=== PATIENT | female | born 1990 | race Caucasian/White ===

== ENCOUNTER 2019-01-21 11:54 | Emergency (ER) | payer OTHER ==
[2019-01-21 12:03] VITALS: BP 111/63; PULSE 82; TEMP 98.1; BMI 38.7
--- NOTE | 2019-01-21 14:09 | PDOC ---
History of Present Illness - General Chief Complaint: Pain, Acute Stated Complaint: RT LEG EDEMA ( CLEAR BY L& D) Time Seen by Provider: 01/21/19 12:06 History Source: Patient Exam Limitations: No Limitations Past History - Past Medical History Allergies/Adverse Reactions: Allergies Allergy/AdvReac Type Severity Reaction Status Date / Time dog dander Allergy Intermediate Difficulty Verified 01/21/19 12:06 Breathing pollen extracts Allergy Intermediate Difficulty Verified 01/21/19 12:06 Breathing No Known Drug Allergies Allergy Verified 01/21/19 12:06 cat Allergy Intermediate Cough Uncoded 01/21/19 12:06 Home Medications: Ambulatory Orders Amoxicillin/Potassium Clav [Augmentin 500-125 Tablet] 1 tab PO BID 01/21/19 Vits96/Iron Fum/Folic [ Tablet] 1 tab PO DAILY 01/21/19 Asthma: Yes Cancer: No Cardiac Disorders: No COPD: No Diabetes: No HTN: No Seizures: No Thyroid Disease: No - Surgical History Abdominal Surgery: Yes - Suicide/Smoking/Psychosocial Hx Smoking History: Never smoked Hx Alcohol Use: No Drug/Substance Use Hx: No Substance Use Type: None Hx Substance Use Treatment: No *Physical Exam - Vital Signs Last Vital Signs Temp Pulse Resp BP Pulse Ox 98.1 F 82 16 111/63 98 01/21/19 11:58 01/21/19 11:58 01/21/19 11:58 01/21/19 11:58 01/21/19 11:58 - Physical Exam General Appearance: No: Apparent Distress Respiratory/Chest: positive: Lungs Clear, Normal Breath Sounds. negative: Respiratory Distress Cardiovascular: positive: Regular Rhythm, Regular Rate, S1, S2. negative: Murmur Gastrointestinal/Abdominal: positive: Other (gravid uterus) Extremity: positive: Pedal Edema (RLE>LLE, no calf tenderness, RLE neurovascularly intact, normal skin color). negative: Calf Tenderness, Erythema Integumentary: negative: Cyanotic, Erythema, Ecchymosis, Bruising Neurologic: positive: Alert, Normal Mood/Affect ED Treatment Course - RADIOLOGY Radiology Studies Ordered: Category Date Time Status DUPLEX VASCUL US-1 LEG [US] Stat Ultrasound 01/21/19 12:28 Completed Medical Decision Making - Medical Decision Making 28 y/o F hx of asthma, (hx 1 , 1 miscarriage) presents with RLE swelling x 3-4 weeks. Was sent by her STEAM FLATTENER, Dr. Ordaz to r/o DVT. Denies fever, cough, sob, cp, abd pain, vaginal bleeding. RLE US negative for DVT Patient was already cleared by OB prior to coming to ED No current suspicion for PAD, cellulitis stable for dc 01/21/19 14:08 *DC/Admit/Observation/Transfer Diagnosis at time of Disposition: Right leg swelling - Discharge Dispostion Disposition: HOME Condition at time of disposition: Stable Decision to Admit order: No - Referrals Referrals: Kanu Stevens MD [Primary Care Provider] - 2 Days - Patient Instructions Additional Instructions: Thank you for choosing [facility]. It was a pleasure taking care of you. There was no clot noted in your leg Please follow-up with your regular doctor and STEAM FLATTENER for further evaluation Return to the Emergency Department if your symptoms worsen or persist, you have fever, shortness of breath, chest pain, redness, change in color of extremities or other concerning symptoms. - Post Discharge Activity
== END 2019-01-21 14:16 | disposition home or self-care (01) ==
LOC: JER 11:54
DX: O26.893 Other specified pregnancy related conditions, third trimester (principal); O12.03 Gestational edema, third trimester; Z3A.34 34 weeks gestation of pregnancy
CPT/HCPCS: 93971-TC; 99281-25

== ENCOUNTER 2019-02-17 10:00 | Inpatient (IN) | payer OTHER ==
[2019-02-17] MEDS ORDERED: ELECTROLYTE-148 SOLN 500 ML IV ONE (10:16)
[2019-02-17] MEDS ORDERED: CITRIC ACID/SODIUM CITRATE 30 ML UNIT-DOSE CUP PO ONE (10:16)
--- NOTE | 2019-02-17 10:44 | HP ---
Past Medical History - Admission Chief Complaint: Scheduled Repeat History of Present Illness: 28yo @ 38wks here for a scheduled Repeat C/S- di/di twin . No complaints today. No VB/LOF. Denies ctx. +FM x 2. 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 No: Bronchitis, Cancer, COPD, O2 Dependent, Pneumonia, Previously Intubated, Pulmonary Embolus, Pulmonary Fibrosis, Sleep Apnea, Other Gastrointestinal: No: Ascites, Cancer, Constipation, Crohn's Disease, Diverticulitis, Diverticulosis, Esophageal Varices, Gastritis, GERD, GI Bleed, Hemorrhoids, Hiatal Hernia, Inflamatory Bowel Disease, Irritable Bowel Disease, Pancreatitis, Peptic Ulcer Disease, Ulcerative Colitis, Other Hepatobiliary: No: Cirrhosis, Cholelithiasis, Cholecystitis, Choledocholithiasis , Hepatitis A, Hepatitis B, Hepatitis C, Other Renal/: No: Renal Failure, Renal Inusuff, BPH, Cancer, Hematuria, Hemodialysis , Neurogenic Bladder, Renal Calculi, UTI, Other Reproductive: No: Ectopic , Endometriosis, Fibroids, PID, Polycystic Ovary Syndrome, Postmenopausal, Other ...: 5 ...Para: 2 ...Term: 2 ...Spon : 2 ... Weeks Gestation by Dates: 38.0 ...EDC by Sono: 03/03/19 Heme/Onc: Yes: Anemia Infectious Disease: No: AIDS, C-Diff, Herpes Zoster, HIV, MRSA, STD's, Tuberculosis, VREF, Other Psych: No: Addictions, Anxiety, Bipolar, Depression, Panic, Psychosis, Schizophrenia, Other Musculoskeletal: No: Bursitis, Chronic low back pain, Hemiparesis, Hemiplegia, Osteoarthritis, Paraplegia, Other Rheumatology: No: Fibromyalgia, Gout, Lupus, Rheumatoid Arthritis, Sarcoidosis, Vasculitis, Other ENT: No: Allergic Rhinitis, Sinusitis, Other Endocrine: No: [place]'s Disease, Marie's Disease, Diabetes Insipidus, Diabetes Mellitus, Hyperparathyroidism, Hyperthyroidism, Hypothyroidism, Osteopenia, SIADH, Other Dermatology: No: Basal Cell, Cellulitis, Eczema, Melanoma, Psoriasis, Squamous Cell, Other - Past Surgical History Past Surgical History: Yes: Hx Myomectomy: No Hx Transabdominal Cerclage: No - Smoking History Smoking history: Never smoked Have you smoked in the past 12 months: No - Alcohol/Substance Use Hx Alcohol Use: No History of Substance Use: reports: None - Social History Usual Living Arrangement: Yes: With Significant Other Home Medications - Allergies Allergies/Adverse Reactions: Allergies Allergy/AdvReac Type Severity Reaction Status Date / Time dog dander Allergy Intermediate Difficulty Verified 02/17/19 10:20 Breathing pollen extracts Allergy Intermediate Difficulty Verified 02/17/19 10:20 Breathing No Known Drug Allergies Allergy Verified 02/17/19 10:20 cat Allergy Intermediate Cough Uncoded 02/17/19 10:20 - Home Medications Home Medications: Ambulatory Orders Vits96/Iron Fum/Folic [ Tablet] 1 tab PO DAILY 01/21/19 Review of Systems - Review of Systems Constitutional: denies: No Symptoms, Chills, Diaphoresis, Fever, Lethargy, Loss of Appetite, Malaise, Night Sweats, Unintentional Wgt. Loss, Weakness, Other Cardiovascular: denies: No Symptoms, Chest Pain, Edema, Palpitations, Shortness of Breath, Other Respiratory: denies: No Symptoms, Cough, Exercise Intolerance, Hemoptysis, Orthopnea, PND, Snoring, SOB, SOB on Exertion, Wheezing, Other Gastrointestinal: denies: No Symptoms, Abdominal Pain, Bloating, Constipation, Diarrhea, Dysphagia, Indigestion, Melena, Nausea, Rectal Bleeding, Vomiting, Vomiting Blood, Other Musculoskeletal: reports: Extremity Pain, Joint Pain, Other (Edema R>L) Physical Exam - Maternity Constitutional: Yes: Well Nourished, No Distress, Calm - Abdominal Exam/OB Number of Fetuses: Multiple Presentation: Breech, Transverse Contractions: No Monitor Mode: External Heart Rate Location: Midline, RUQ Category: I Accelerations: Non-Uniform Decelerations: None - Vaginal Exam/OB Vaginal Bleediing: No Amniotic Membrane Status: Intact Presentation: Keith Breech - Physical Exam Edema: LLE: 2+, RLE: 3+ Assessment/Plan 28yo @ 38wks here for scheduled RLTCS Admit to L&D NPO, IVFs Ancef SCDs Hansen Cat I FHT x 2 Risk of procedure reviewed including bleeding, infection, injury to bladder/ bowel/adnexa/vessels/nerves. All questions answered Consents signed. iBll Mcmahon MD
[2019-02-17] MEDS: ELECTROLYTE-148 SOLN 1,000 ML IV SCH (10:45)
[2019-02-17 10:46] VITALS: BMI 39.3
[2019-02-17] MEDS ORDERED: morphine SULFATE/PF 0.5 MG/ML (2cc Syringe - QUVA) ONE (12:16)
[2019-02-17] MEDS ORDERED: IBUPROFEN 600 MG TABLET (FP) PO PRN (12:29)
[2019-02-17] MEDS ORDERED: ONDANSETRON 4 MG/2 ML VIAL IVPUSH PRN (12:29)
[2019-02-17] MEDS ORDERED: ceFAZolin SODIUM 1 GM VIAL ONE ×2 (12:34→12:35)
[2019-02-17] MEDS ORDERED: OXYTOCIN 10 UNITS/ML VIAL ONE ×2 (12:35)
--- NOTE | 2019-02-17 13:26 | OP ---
Operative Note - Note: Operative Date: 02/17/19 Pre-Operative Diagnosis: 38 week , Di/Di Twin , Prior C/S, Breech/Transverse Presentation Operation: Repeat Low Transverse Findings: VMI, Keith Breech, Apgars 9/9. Weight 5lbs 15oz VMI, Keith Breech, Apgars 9/9, Weight 5lbs 13oz Normal tubes and ovaries Post-Operative Diagnosis: Same as Pre-op Surgeon: Cecily Mcmahon Sheet Metal Worker Maintenance: Hugh Ordaz Anesthesiologist/MILITARY PROFESSIONAL: Galindo Gonzalez (\) Anesthesia: Spinal Estimated Blood Loss (mls): 700 Drains, Volume Out (mls): 400 (clear urine) Operative Report Dictated: Yes
[2019-02-17] MEDS ORDERED: ACETAMINOPHEN 325 MG TABLET (FP) PO PRN (13:31)
[2019-02-17] MEDS ORDERED: OXYTOCIN 20 UNITS in 0.9% NS 20 UNIT/1,000 ML INFUS.BAG IV ONE (13:36)
--- NOTE | 2019-02-17 14:25 | OP ---
DATE OF OPERATION: 02/17/2019 PREOPERATIVE DIAGNOSES: 38-week , dichorionic, diamniotic twin , prior section, breech transverse presentation. POSTOPERATIVE DIAGNOSES: 38-week , dichorionic, diamniotic twin , prior section, breech transverse presentation. PROCEDURE: Repeat low transverse section. ANESTHESIA: Spinal. SURGEON: Cecily Mcmahon MD DIGITAL SERVICE ENGINEER: Hugh Ordaz MD ESTIMATED BLOOD LOSS: 700. URINE OUTPUT: 400 mL of clear urine. INTRAVENOUS FLUIDS: Per anesthesia record. FINDINGS: Viable male , kate breech presentation. Apgars 9, 9. Weight 5 pounds 15 ounces. Twin B viable male , kate breech presentation. Apgars 9, 9. Weight 5 pounds 13 ounces. Normal tubes and ovaries bilaterally. COMPLICATIONS: None. CONDITION: Stable to recovery room. NATURE OF THE PROCEDURE: After the appropriate consents were signed, the patient was taken to the operating room. Spinal anesthesia was administered. Abdomen was prepped and draped in a normal sterile fashion. A Hansen catheter was inserted prior to the start of the procedure. Anesthesia was confirmed. A time-out was performed confirming correct patient and procedure. Pfannenstiel incision was made through the prior incision carried through to the underlying layers until the fascia was nicked in the midline. The fascia was then extended laterally with the Bovie. The inferior aspect of the fascia was grasped with the Aleta clamps, tented upwards, and the rectus muscle was dissected off bluntly and with the Triplett scissors. Attention was then paid to the superior aspect, which was taken down in a similar fashion in addition to scalpel maneuver. The rectus muscles were then dissected in the midline with the scalpel. The peritoneum was then entered sharply. Peritoneum was then extended with the Triplett scissors. Rectus muscles were also opened with the Bovie to accommodate space for delivery. Uterus was nicked in the midline with the Metzenbaum scissors to allow for creation of the bladder flap, which was done digitally. The bladder blade was then reinserted. The uterus was then incised in a low transverse fashion. Clear amniotic fluid was noted. The infant buttocks was identified. The legs were grasped and delivered in a typical breech maneuver. The head was delivered with the Bsrfeixld-Imycuzo-Tbjt maneuver without difficulty. The cord was clamped and cut, and the was handed off to the awaiting pediatric staff. Using the Allis, the 2nd amniotic sac was then ruptured with clear fluid noted. Infants buttocks and feet were identified, and the was delivered in the typical breech fashion again with the Lwebwraxj-Jnirsjy-Jjot maneuver to accommodate delivery for the head. The cord was clamped and cut. The was handed off to the awaiting pediatric staff. Both placentas were removed manually. The uterus was cleared of all clot and debris. The uterus was closed in a single layer with a 1-0 Vicryl with the midline requiring additional sutures for hemostasis. The rectus muscles were then reapproximated with a 2-0 chromic. The fascia was closed with 0 Vicryl. The subcutaneous tissue was closed with 3-0 plain. The skin was closed with 3-0 Biosyn. Sponge, lap, needle counts were correct x2. Patient did receive 2 g of Ancef at the start of the procedure. She was taken from the operating room to the recovery area in stable condition. MD EDWIN PEACOCK/[id number] MTDD
[2019-02-17] MEDS: OXYTOCIN 20 UNITS in 0.9% NS 20 UNIT/1,000 ML INFUS.BAG IV SCH (14:35)
[2019-02-17] MEDS ORDERED: IBUPROFEN 800 MG/8 ML IJ IVPB PRN (20:39)
[2019-02-18] MEDS: IBUPROFEN 600 MG TABLET (FP) PO PRN ×4 (05:59→22:03)
[2019-02-18] MEDS: ACETAMINOPHEN 325 MG TABLET (FP) PO PRN ×4 (05:59→22:03)
[2019-02-18] MEDS: SIMETHICONE 80 MG TAB.CHEW (FP) PO PRN ×4 (05:59→22:03)
[2019-02-18] MEDS: OXYTOCIN 20 UNITS in 0.9% NS 20 UNIT/1,000 ML INFUS.BAG IV SCH (07:00)
[2019-02-18 07:14] LABS: BASO % 0.3 % (0-2.0); EOS % 0.9 % (0-4.5); HEMATOCRIT 30.2 % (32.4-45.2); HEMOGLOBIN 9.8 GM/dL (10.7-15.3); LYMPH % 20.6 % (8-40); MCH 26.3 pg (25.7-33.7); MCHC 32.5 g/dl (32.0-36.0); MEAN PLT VOLUME 9.6 fl (7.5-11.1); MONO % 5.5 % (3.8-10.2); NEUT % 72.7 % (42.8-82.8); PLATELET COUNT 159 K/MM3 (134-434); RBC 3.73 M/mm3 (3.60-5.2); RDW 16.6 % (11.6-15.6); WHITE BLOOD COUNT 9.4 K/mm3 (4.0-10.0)
--- NOTE | 2019-02-18 09:01 | PN ---
Post Progress Note - Subjective Subjective: Patient is out of bed, pelaez is out, voiding, lochia decreased, pain controlled. Type of Delivery: Repeat C/S Vital Signs: Vital Signs Temperature 97.8 F 02/18/19 05:45 Pulse Rate 73 02/18/19 05:45 Respiratory Rate 18 02/18/19 06:00 Blood Pressure 135/85 02/18/19 05:45 O2 Sat by Pulse Oximetry (%) 100 02/17/19 15:00 Breast Exam: Yes: Other (deferred) Uterus: Yes: Fundus Firm Incision: Yes: Dressing dry and intact Abdomen/GI: Yes: Abdomen soft, Tender (appropriately) Lochia, amount: Moderate Extremities: Yes: Calves non-tender Activity: Ambulating - Labs Labs: CBC WBC 9.4 K/mm3 (4.0-10.0) 02/18/19 06:54 RBC 3.73 M/mm3 (3.60-5.2) 02/18/19 06:54 Hgb 9.8 GM/dL (10.7-15.3) L 02/18/19 06:54 Hct 30.2 % (32.4-45.2) L 02/18/19 06:54 MCV 81.0 fl (80-96) 02/18/19 06:54 MCH 26.3 pg (25.7-33.7) 02/18/19 06:54 MCHC 32.5 g/dl (32.0-36.0) 02/18/19 06:54 RDW 16.6 % (11.6-15.6) H 02/18/19 06:54 Plt Count 159 K/MM3 (134-434) 02/18/19 06:54 MPV 9.6 fl (7.5-11.1) 02/18/19 06:54 Absolute Neuts (auto) 6.8 K/mm3 (1.5-8.0) 02/18/19 06:54 Neutrophils % 72.7 % (42.8-82.8) 02/18/19 06:54 Lymphocytes % 20.6 % (8-40) D 02/18/19 06:54 Monocytes % 5.5 % (3.8-10.2) 02/18/19 06:54 Eosinophils % 0.9 % (0-4.5) 02/18/19 06:54 Basophils % 0.3 % (0-2.0) 02/18/19 06:54 Nucleated RBC % 0 % (0-0) 02/18/19 06:54 Assessment/Plan 28 y/o on POD # 1 in stable condition -continue PP/post-op care
--- NOTE | 2019-02-18 09:35 | PN ---
Progress Note (short form) - Note Progress Note: 28 yo F s/p C/S + duramorph c/o abd pain 09/27. awaiting PO pain meds good result of anethetic car. cont current meds and plan
[2019-02-18] MEDS ORDERED: BISACODYL 10 MG SUPP.RECT RC PRN (13:31)
[2019-02-18] MEDS: oxyCODONE HCL 5 MG TABLET PO PRN (20:15)
[2019-02-19] MEDS: oxyCODONE HCL 5 MG TABLET PO PRN ×5 (01:04→20:41)
[2019-02-19] MEDS: SIMETHICONE 80 MG TAB.CHEW (FP) PO PRN ×3 (08:00→20:40)
--- NOTE | 2019-02-19 08:44 | PN ---
Post Progress Note - Subjective Subjective: c/o pain , scale 8/10 voiding without difficulty c/o gaseous discomfort bm not done Post Day: 2 Type of Delivery: Repeat C/S Vital Signs: Vital Signs Temperature 97.9 F 02/18/19 20:46 Pulse Rate 88 02/18/19 20:46 Respiratory Rate 18 02/18/19 20:46 Blood Pressure 124/92 02/18/19 20:46 O2 Sat by Pulse Oximetry (%) 100 02/17/19 15:00 Breast Exam: Yes: Soft, Other (will attempt to BF ). No: Engorged Uterus: Yes: Fundus Firm, Fundus below umbilicus, Non-tender Incision: Yes: Sutures intact, Other. No: Redness, Oozing Abdomen/GI: Yes: Abdomen soft, Abdominal Distention (bs active ), Tender, Passing flatus (bm not done ), Tolerating PO (diet ) Lochia: Yes: Rubra Lochia, amount: Moderate Extremities: Yes: Calves non-tender Perineum: Yes: Intact Activity: Ambulating - Labs Labs: CBC WBC 9.4 K/mm3 (4.0-10.0) 02/18/19 06:54 RBC 3.73 M/mm3 (3.60-5.2) 02/18/19 06:54 Hgb 9.8 GM/dL (10.7-15.3) L 02/18/19 06:54 Hct 30.2 % (32.4-45.2) L 02/18/19 06:54 MCV 81.0 fl (80-96) 02/18/19 06:54 MCH 26.3 pg (25.7-33.7) 02/18/19 06:54 MCHC 32.5 g/dl (32.0-36.0) 02/18/19 06:54 RDW 16.6 % (11.6-15.6) H 02/18/19 06:54 Plt Count 159 K/MM3 (134-434) 02/18/19 06:54 MPV 9.6 fl (7.5-11.1) 02/18/19 06:54 Absolute Neuts (auto) 6.8 K/mm3 (1.5-8.0) 02/18/19 06:54 Neutrophils % 72.7 % (42.8-82.8) 02/18/19 06:54 Lymphocytes % 20.6 % (8-40) D 02/18/19 06:54 Monocytes % 5.5 % (3.8-10.2) 02/18/19 06:54 Eosinophils % 0.9 % (0-4.5) 02/18/19 06:54 Basophils % 0.3 % (0-2.0) 02/18/19 06:54 Nucleated RBC % 0 % (0-0) 02/18/19 06:54 Problem List - Problems (1) Status post section routine follow-up Code(s): Z39.2 - ENCOUNTER FOR ROUTINE FOLLOW-UP; Z98.891 - HISTORY OF UTERINE SCAR FROM PREVIOUS SURGERY Assessment/Plan stable ct po care offerred dulcolax suppository , declined encourage ambulation , deep breathing , po fluids
[2019-02-19] MEDS: ACETAMINOPHEN 325 MG TABLET (FP) PO PRN ×2 (10:13→20:40)
[2019-02-19] MEDS: IBUPROFEN 600 MG TABLET (FP) PO PRN ×2 (10:14→12:34)
[2019-02-19] MEDS ORDERED: PCA PUMP KEY 1 EACH EACH ONE (14:40)
[2019-02-19] MEDS ORDERED: OXYBUTYNIN CHLORIDE 5 MG TABLET PO PRN (15:12)
[2019-02-19] MEDS: ELECTROLYTE-148 SOLN 1,000 ML IV SCH (16:42)
[2019-02-19] MEDS: OXYTOCIN 20 UNITS in 0.9% NS 20 UNIT/1,000 ML INFUS.BAG IV SCH (16:42)
--- NOTE | 2019-02-19 17:21 | PATH ---
Surgical Pathology Report Patient Name: LOVE OSBORN [facility]. Rec. #: [id number] /Age/Gender: 1990 (Age: 28) / F Account: [id number] Location: [facility] OBS/CORRESPONDENCE RENEW CLERK Taken: 02/17/2019 Received: 02/18/2019 Reported: 02/19/2019 Physicians: Cecily Mcmahon Specimen(s) Received TWIN PLACENTA Clinical History , 37.4 weeks gestation Final Diagnosis TWIN PLACENTA, SECTION: 1186 G DIAMNIOTIC DICHORIONIC FUSED DISC TWIN PLACENTA. PLACENTA A, THIRD TRIMESTER PLACENTA WITH TRIVASCULAR UMBILICAL CORD AND UNREMARKABLE PLACENTAL MEMBRANES. PLACENTA B, THIRD TRIMESTER PLACENTA WITH TRIVASCULAR UMBILICAL CORD, UNREMARKABLE PLACENTAL MEMBRANES, AND FOCAL INTRAPARENCHYMAL INFARCT (<5% OF PLACENTAL SURFACE). Electronically Signed Dulce Garnett M.D. Gross Description A. The specimen is received fresh labeled "placenta" is an 1186 gram, 34 x 20 x 2 cm, fused disc twin placenta with attached membranes and umbilical cord. The twin placenta is fused midline and by dividing membranes. Placenta A measures 17 x 20 x 2 cm. The attached membranes are clear and translucent and insert marginally. The umbilical cord measures 33 cm. in length and averages 1.5 cm. in diameter. The cord inserts eccentrically, 6 cm. to the nearest margin. No true knots or strictures are identified. Cut surface of the umbilical cord reveals 3 vessels. The surface is niño-blue with minimal fibrin deposition and appropriate caliber vessels. The maternal surface is red-brown with focal defects. Sectioning reveals red-brown, spongy parenchyma. No lesions are identified. Placenta B measures 17 x 20 x 2 cm. The attached membranes are clear and translucent and insert marginally. The umbilical cord measures 26 cm. in length and averages 1.5 cm. in diameter. The cord inserts eccentrically, 4 cm. to the nearest margin. No true knots or strictures are identified. Cut surface of the umbilical cord reveals 3 vessels. The surface is niño-blue with minimal fibrin deposition and appropriate caliber vessels. The maternal surface is red-brown with focal defects. Sectioning reveals 3 adjacent nodular singletary lesions measuring 5 x 3 cm in aggregate. Remainder of parenchyma is red-brown and spongy. Yard Laborer sections are submitted in 8 cassettes as follows: 1- placenta A, membrane rolls and umbilical cord; 2-3- placenta A, full thickness sections.; 4- dividing membrane; 5- placenta B, membrane rolls and umbilical cord; 6-7- placenta B, full thickness sections.; 8- singletary lesion, placenta B. MLCharlesZ/02/18/2019 romelia/02/18/2019
[2019-02-20] MEDS: IBUPROFEN 600 MG TABLET (FP) PO PRN ×3 (02:37→12:29)
[2019-02-20] MEDS: oxyCODONE HCL 5 MG TABLET PO PRN ×3 (02:37→12:29)
[2019-02-20] MEDS: SIMETHICONE 80 MG TAB.CHEW (FP) PO PRN ×3 (02:37→12:28)
[2019-02-20 07:48] LABS: BASO % 0.5 % (0-2.0); EOS % 3.5 % (0-4.5); HEMATOCRIT 29.4 % (32.4-45.2); HEMOGLOBIN 9.5 GM/dL (10.7-15.3); LYMPH % 36.7 % (8-40); MCH 26.4 pg (25.7-33.7); MCHC 32.3 g/dl (32.0-36.0); MEAN CELL VOLUME 81.6 fl (80-96); MEAN PLT VOLUME 9.1 fl (7.5-11.1); MONO % 5.7 % (3.8-10.2); NEUT % 53.6 % (42.8-82.8); PLATELET COUNT 241 K/MM3 (134-434); RDW 17.5 % (11.6-15.6); WHITE BLOOD COUNT 8.1 K/mm3 (4.0-10.0)
--- NOTE | 2019-02-20 07:55 | PN ---
Post Progress Note - Subjective Subjective: Pain improved with po meds, requiring Oxycodone. Post Day: 3 Type of Delivery: Repeat C/S Vital Signs: Vital Signs Temperature 97.4 F L 02/19/19 21:59 Pulse Rate 75 02/19/19 21:59 Respiratory Rate 20 02/19/19 21:59 Blood Pressure 143/79 02/19/19 21:59 O2 Sat by Pulse Oximetry (%) 100 02/17/19 15:00 Uterus: Yes: Fundus below umbilicus Incision: Yes: Dressing dry and intact, Sutures intact Abdomen/GI: Yes: Abdomen soft, Passing flatus, Tolerating PO Lochia: Yes: Rubra Lochia, amount: Small Extremities: Yes: Calves non-tender Activity: Ambulating - Labs Labs: CBC WBC 9.4 K/mm3 (4.0-10.0) 02/18/19 06:54 RBC 3.73 M/mm3 (3.60-5.2) 02/18/19 06:54 Hgb 9.8 GM/dL (10.7-15.3) L 02/18/19 06:54 Hct 30.2 % (32.4-45.2) L 02/18/19 06:54 MCV 81.0 fl (80-96) 02/18/19 06:54 MCH 26.3 pg (25.7-33.7) 02/18/19 06:54 MCHC 32.5 g/dl (32.0-36.0) 02/18/19 06:54 RDW 16.6 % (11.6-15.6) H 02/18/19 06:54 Plt Count 159 K/MM3 (134-434) 02/18/19 06:54 MPV 9.6 fl (7.5-11.1) 02/18/19 06:54 Absolute Neuts (auto) 6.8 K/mm3 (1.5-8.0) 02/18/19 06:54 Neutrophils % 72.7 % (42.8-82.8) 02/18/19 06:54 Lymphocytes % 20.6 % (8-40) D 02/18/19 06:54 Monocytes % 5.5 % (3.8-10.2) 02/18/19 06:54 Eosinophils % 0.9 % (0-4.5) 02/18/19 06:54 Basophils % 0.3 % (0-2.0) 02/18/19 06:54 Nucleated RBC % 0 % (0-0) 02/18/19 06:54 Assessment/Plan 28yo s/p RLTCS, POD#3 Routine PP care PO pain control OOB, ambulate Anticipate d/c to home POD#4 Bill Mcmahon MD
[2019-02-20 09:37] VITALS: BP 132/87; PULSE 72; TEMP 98
== END 2019-02-20 13:40 | disposition home or self-care (01) | DRG 540 ==
LOC: JLDR 10:00 → J3W 16:08
PROVIDERS: ADMIT Obstetrics & Gynecology; ATTEND Obstetrics & Gynecology
PROC: 10D00Z1 Extraction of Products of Conception, Low, Open Approach (ICD-10-PCS; principal; 2019-02-17)
DX: O30.043 Twin pregnancy, dichorionic/diamniotic, third trimester (principal); O32.1XX1 Maternal care for breech presentation, fetus 1; O32.1XX2 Maternal care for breech presentation, fetus 2; O34.219 Maternal care for unspecified type scar from previous cesarean delivery; Z3A.38 38 weeks gestation of pregnancy; Z37.2 Twins, both liveborn
CPT/HCPCS: 36415; 85025; 86850; 86900; 86901; 88307-TC

== ENCOUNTER 2021-07-07 17:26 | Emergency (ER) | payer OTHER ==
[2021-07-07 17:45] VITALS: BP 118/60; PULSE 80; TEMP 98; BMI 35.6
[2021-07-07 19:29] LABS: BASO % 0.5 % (0-2.0); EOS % 1.7 % (0-4.5); HEMATOCRIT 36.3 % (32.4-45.2); HEMOGLOBIN 12.4 GM/dL (10.7-15.3); LYMPH % 24.8 % (8-40); MCH 31.5 pg (25.7-33.7); MCHC 34.1 g/dl (32.0-36.0); MEAN CELL VOLUME 92.3 fl (80-96); MEAN PLT VOLUME 8.7 fl (7.5-11.1); MONO % 5.8 % (3.8-10.2); NEUT % 67.2 % (42.8-82.8); PLATELET COUNT 229 10^3/uL (134-434); RBC 3.94 M/mm3 (3.60-5.2)
[2021-07-07 19:33] LABS: PH,URINE 6.5 (5.0-8.0); URINE APPEARANCE CLEAR; URINE BILIRUBIN NEGATIVE (NEGATIVE); URINE COLOR YELLOW; URINE GLUCOSE (UA) NEGATIVE (NEGATIVE); URINE KETONE TRACE (NEGATIVE); URINE LEUK ESTERASE NEGATIVE (NEGATIVE); URINE NITRITE NEGATIVE (NEGATIVE); URINE PROTEIN NEGATIVE (NEGATIVE)
[2021-07-07 19:52] LABS: CALCIUM 9.1 mg/dL (8.5-10.1)
[2021-07-07 19:53] LABS: ALBUMIN 3.3 g/dl (3.4-5.0); BLOOD UREA NITROGEN 4.7 mg/dL (7-18)
[2021-07-07 19:56] LABS: CREATININE 0.6 mg/dL (0.55-1.3)
[2021-07-07 19:57] LABS: BILIRUBIN,TOTAL 0.2 mg/dL (0.2-1); TOT PROT 6.8 g/dl (6.4-8.2)
== END 2021-07-07 22:10 | disposition home or self-care (01) ==
LOC: JER 17:26
DX: O21.9 Vomiting of pregnancy, unspecified (principal); Z3A.19 19 weeks gestation of pregnancy
CPT/HCPCS: 36415; 76801-TC; 80053; 81003; 85025; 87086; 99284-25

== ENCOUNTER 2021-11-14 08:20 | Inpatient (IN) | payer OTHER ==
[2021-11-14] MEDS ORDERED: ELECTROLYTE-148 SOLN 500 ML IV ONE (08:33)
[2021-11-14] MEDS ORDERED: CITRIC ACID/SODIUM CITRATE 30 ML UNIT-DOSE CUP PO ONE (08:33)
[2021-11-14] MEDS ORDERED: ELECTROLYTE-148 SOLN 1,000 ML IV SCH (08:45)
[2021-11-14] MEDS ORDERED: ONDANSETRON 4 MG/2 ML VIAL ONE ×2 (09:25→12:48)
[2021-11-14] MEDS ORDERED: ONDANSETRON 4 MG/2 ML VIAL IVPB PRN (09:59)
[2021-11-14 10:00] VITALS: BMI 38.4
[2021-11-14] MEDS ORDERED: OXYTOCIN 20 UNITS in 0.9% NS 20 UNIT/1,000 ML INFUS.BAG IV ONE ×2 (12:41→16:11)
[2021-11-14] MEDS ORDERED: morphine SULFATE/PF 1 MG/2 ML (2cc Syringe - QUVA) ONE (12:42)
[2021-11-14] MEDS ORDERED: ceFAZolin SODIUM 1 GM VIAL ONE (12:48)
[2021-11-14] MEDS ORDERED: PHENYLEPHRINE HCL 10 MG/1 ML SINGLE DOSE VIAL ONE (12:48)
[2021-11-14] MEDS ORDERED: KETOROLAC TROMETHAMINE 30 MG/1 ML VIAL ONE (12:48)
[2021-11-14] MEDS ORDERED: ACETAMINOPHEN 325 MG TABLET (FP) PO PRN (14:48)
[2021-11-14] MEDS ORDERED: IBUPROFEN 600 MG TABLET (FP) PO PRN (14:48)
[2021-11-14] MEDS ORDERED: OXYTOCIN 20 UNITS in 0.9% NS 20 UNIT/1,000 ML INFUS.BAG IV SCH (15:00)
[2021-11-14] MEDS ORDERED: ALBUTEROL SO4 HFA INHALER IH PRN (15:00)
[2021-11-14] MEDS: ACETAMINOPHEN 1000 MG/100 ML BAG IVPB SCH ×2 (17:12→22:30)
[2021-11-14] MEDS: IBUPROFEN 800 MG/8 ML IJ IVPB SCH ×3 (17:12→23:17)
[2021-11-14] MEDS: CEFAZOLIN SODIUM 2 GM in DEXTROSE 5%-WATER 100 ML IVPB SCH (17:18)
[2021-11-15] MEDS: CEFAZOLIN SODIUM 2 GM in DEXTROSE 5%-WATER 100 ML IVPB SCH (02:23)
[2021-11-15] MEDS: ACETAMINOPHEN 1000 MG/100 ML BAG IVPB SCH ×2 (03:20→08:23)
[2021-11-15] MEDS: IBUPROFEN 800 MG/8 ML IJ IVPB SCH ×2 (06:13→06:55)
[2021-11-15] MEDS: oxyCODONE HCL 5 MG TABLET PO PRN ×3 (06:38→23:21)
[2021-11-15 07:58] LABS: BASO % 0.7 % (0-2.0); EOS % 1.2 % (0-4.5); HEMATOCRIT 31.3 % (32.4-45.2); HEMOGLOBIN 10.5 GM/dL (10.7-15.3); LYMPH % 14.3 % (8-40); MCH 29.2 pg (25.7-33.7); MCHC 33.4 g/dl (32.0-36.0); MEAN CELL VOLUME 87.6 fl (80-96); MONO % 6.7 % (3.8-10.2); NEUT % 77.1 % (42.8-82.8); PLATELET COUNT 215 10^3/uL (134-434); RBC 3.58 M/mm3 (3.60-5.2); RDW 15.1 % (11.6-15.6); WHITE BLOOD COUNT 8.8 K/mm3 (4.0-10.0)
[2021-11-15] MEDS: ACETAMINOPHEN 500 MG TABLET (FP) PO SCH ×3 (11:47→23:19)
[2021-11-15] MEDS ORDERED: BISACODYL 10 MG SUPP.RECT RC PRN (14:49)
[2021-11-15] MEDS: SIMETHICONE 80 MG TAB.CHEW (FP) PO PRN (18:11)
[2021-11-15] MEDS: SENNOSIDES/DOCUSATE COMBO (SENNA PLUS) TABLET (UD) PO PRN (21:00)
[2021-11-16] MEDS: ACETAMINOPHEN 500 MG TABLET (FP) PO SCH ×4 (05:52→22:49)
[2021-11-16] MEDS: oxyCODONE HCL 5 MG TABLET PO PRN ×3 (08:41→20:56)
[2021-11-16] MEDS: SIMETHICONE 80 MG TAB.CHEW (FP) PO PRN ×3 (08:42→20:55)
[2021-11-16] MEDS: ACETAMINOPHEN/CAFFEINE/BUTALBITAL 1 TAB PO PRN ×2 (10:22→17:08)
[2021-11-16] MEDS: SENNOSIDES/DOCUSATE COMBO (SENNA PLUS) TABLET (UD) PO PRN (20:55)
[2021-11-17] MEDS: ACETAMINOPHEN 500 MG TABLET (FP) PO SCH ×2 (04:54→11:05)
[2021-11-17] MEDS: oxyCODONE HCL 5 MG TABLET PO PRN (04:54)
[2021-11-17 11:38] VITALS: BP 126/84; PULSE 79; TEMP 98.3
== END 2021-11-17 15:15 | disposition home or self-care (01) | DRG 540 ==
LOC: JLDR 08:20 → J3W 16:30
PROVIDERS: ADMIT Specialist; ATTEND Specialist
PROC: 10D00Z1 Extraction of Products of Conception, Low, Open Approach (ICD-10-PCS; principal; 2021-11-14)
PROC: 0DNW0ZZ Release Peritoneum, Open Approach (ICD-10-PCS; 2021-11-14)
DX: O13.4 Gestational [pregnancy-induced] hypertension without significant proteinuria, complicating childbirth (principal); O34.218 Maternal care for other type scar from previous cesarean delivery; O99.892 Other specified diseases and conditions complicating childbirth; N73.6 Female pelvic peritoneal adhesions (postinfective); Z3A.38 38 weeks gestation of pregnancy; Z37.0 Single live birth
CPT/HCPCS: 36415; 59025; 71045-TC-FY; 85025; 88307-TC; G0463-25